=== PATIENT | female | born 1995 | race Caucasian/White ===

== ENCOUNTER 2024-02-16 02:11 | Emergency (ER) | payer MEDICAID ==
[~2024-02-16] VITALS: Ht 172.7 cm; Wt 117.9 kg
[2024-02-16 02:28] VITALS: PULSE 93; RESP 20; TEMP 98.8; O2SAT 97
[2024-02-16 03:01] VITALS: PULSE 93; RESP 20; TEMP 98.8; O2SAT 97
== END 2024-02-16 03:00 | disposition home or self-care (01) ==
LOC: SED 02:11
DX: S61.212A Laceration without foreign body of right middle finger without damage to nail, initial encounter (principal); Z79.899 Other long term (current) drug therapy; W25.XXXA Contact with sharp glass, initial encounter; Y93.89 Activity, other specified; Y92.89 Other specified places as the place of occurrence of the external cause; Y99.8 Other external cause status
CPT/HCPCS: 99282